=== PATIENT | male | born 1960 | race Caucasian/White ===

== ENCOUNTER 2017-06-18 10:40 | Emergency (ER) | payer SELFPAY ==
[~2017-06-18] VITALS: Ht 167.6 cm; Wt 88.2 kg
[2017-06-18 10:42] VITALS: BP 87/46
[2017-06-18 10:58] LABS: GLUCOSE,POINT OF CARE 215 MG/DL (70-110)
== END 2017-06-18 10:51 | disposition left against medical advice (07) ==
LOC: EMS 10:43
DX: R55 Syncope and collapse (principal); Z53.21 Procedure and treatment not carried out due to patient leaving prior to being seen by health care provider
CPT/HCPCS: 82962